=== PATIENT | male | born 1975 | race Caucasian/White ===

== ENCOUNTER 2021-03-18 19:08 | Inpatient (IN) | payer OTHER ==
[2021-03-18 20:27] VITALS: BMI 20.7
[2021-03-18] MEDS ORDERED: BISMUTH SUBSALICYLATE 524 MG/30 ML PO PRN (21:11)
[2021-03-18] MEDS ORDERED: IBUPROFEN 400 MG TABLET (FP) PO PRN (21:11)
[2021-03-18] MEDS ORDERED: ACETAMINOPHEN 325 MG TABLET (FP) PO PRN ×2 (21:11)
[2021-03-18] MEDS ORDERED: MAGNESIUM CITRATE 300 ML BOTTLE PO PRN (21:11)
[2021-03-18] MEDS ORDERED: METHOCARBAMOL 500 MG TABLET PO PRN (21:11)
[2021-03-18] MEDS ORDERED: ONDANSETRON *ODT* 4 MG TABLET SL PRN (21:11)
[2021-03-18] MEDS ORDERED: MENTHOL/PHENOL 1 EACH UD MM PRN (21:11)
[2021-03-18] MEDS ORDERED: MAG HYDROX/AL HYDROX/SIMETH 30 ML UNIT-DOSE CUP PO PRN (21:11)
[2021-03-18] MEDS ORDERED: MAGNESIUM HYDROX 2400MG/30ML ORAL SUSPENSION 30 ML CUP PO PRN (21:11)
[2021-03-18] MEDS ORDERED: diazePAM 5 MG TABLET PO PRN (21:12)
[2021-03-18] MEDS: THIAMINE HCL 100 MG TABLET (FP) PO SCH (23:43)
[2021-03-18] MEDS: diazePAM 5 MG TABLET PO SCH (23:43)
[2021-03-18] MEDS: MELATONIN 5 MG TABLETS PO SCH (23:43)
[2021-03-18] MEDS: hydrOXYzine PAMOATE 25 MG CAPSULE (FP) PO PRN (23:43)
[2021-03-19] MEDS: diazePAM 5 MG TABLET PO SCH ×4 (06:23→22:43)
[2021-03-19 10:48] LABS: HEMATOCRIT 42.3 % (35.4-49); HEMOGLOBIN 14.5 GM/dL (11.7-16.9); MCHC 34.2 g/dl (32.0-35.9); MEAN CELL VOLUME 84.9 fl (80-96); MEAN PLT VOLUME 8.4 fl (7.5-11.1); PLATELET COUNT 225 10^3/uL (134-434); RBC 4.99 M/mm3 (4.00-5.60); RDW 14.4 % (11.9-15.9); WHITE BLOOD COUNT 3.7 K/mm3 (4.0-10.0)
[2021-03-19 11:17] LABS: CALCIUM 8.3 mg/dL (8.5-10.1)
[2021-03-19 11:19] LABS: ALBUMIN 3.1 g/dl (3.4-5.0); BLOOD UREA NITROGEN 14.5 mg/dL (7-18)
[2021-03-19] MEDS: PRENATAL VITAMINS W/ FOLIC ACID TABLET (FP) PO SCH (11:19)
[2021-03-19 11:21] LABS: CREATININE 0.9 mg/dL (0.55-1.3)
[2021-03-19 11:22] LABS: BILIRUBIN,TOTAL 0.4 mg/dL (0.2-1)
[2021-03-19 11:24] LABS: TOT PROT 6.5 g/dl (6.4-8.2)
[2021-03-19] MEDS ORDERED: LIDOCAINE 5% TOPICAL PATCH TP ONE (14:15)
[2021-03-19] MEDS: hydrOXYzine PAMOATE 25 MG CAPSULE (FP) PO PRN (18:07)
[2021-03-19] MEDS: THIAMINE HCL 100 MG TABLET (FP) PO SCH (22:42)
[2021-03-19] MEDS: MELATONIN 5 MG TABLETS PO SCH (22:43)
[2021-03-19] MEDS: LIDOCAINE PATCH REMOVAL MC SCH (22:44)
[2021-03-20] MEDS ORDERED: diazePAM 5 MG TABLET PO SCH (06:00)
[2021-03-20] MEDS: PRENATAL VITAMINS W/ FOLIC ACID TABLET (FP) PO SCH (09:37)
[2021-03-20] MEDS ORDERED: LIDOCAINE 5% TOPICAL PATCH TP SCH (10:00)
[2021-03-20] MEDS: diazePAM 5 MG TABLET PO SCH ×2 (10:14→22:02)
[2021-03-20] MEDS: MELATONIN 5 MG TABLETS PO SCH (22:03)
[2021-03-20] MEDS: THIAMINE HCL 100 MG TABLET (FP) PO SCH (22:03)
[2021-03-20] MEDS: LIDOCAINE PATCH REMOVAL MC SCH (22:03)
[2021-03-21] MEDS ORDERED: diazePAM 5 MG TABLET PO ONE (06:00)
[2021-03-21] MEDS ORDERED: diazePAM 5 MG TABLET PO SCH (06:00)
[2021-03-21 08:54] VITALS: BP 128/80; PULSE 64; TEMP 96.1
[2021-03-22] MEDS ORDERED: diazePAM 5 MG TABLET PO ONE (06:00)
== END 2021-03-21 09:39 | disposition home or self-care (01) | DRG 774 ==
LOC: YASAS 19:08 → Y3N 21:55
PROVIDERS: ADMIT Allergy & Immunology; ATTEND Allergy & Immunology
PROC: HZ2ZZZZ Detoxification Services for Substance Abuse Treatment (ICD-10-PCS; principal; 2021-03-18)
DX: F10.230 Alcohol dependence with withdrawal, uncomplicated (principal); F14.20 Cocaine dependence, uncomplicated; F12.20 Cannabis dependence, uncomplicated; F17.210 Nicotine dependence, cigarettes, uncomplicated; F19.24 Other psychoactive substance dependence with psychoactive substance-induced mood disorder; Z21 Asymptomatic human immunodeficiency virus [HIV] infection status; Z86.19 Personal history of other infectious and parasitic diseases; Z88.2 Allergy status to sulfonamides; Z86.69 Personal history of other diseases of the nervous system and sense organs; Z56.0 Unemployment, unspecified
CPT/HCPCS: 36415; 80053; 85027; 86593; 86780; C9803; U0003; U0005